=== PATIENT | female | born 2000 | race Caucasian/White ===

== ENCOUNTER 2018-12-12 12:59 | Outpatient (CLI) | payer MEDICAID ==
[2018-12-12 13:16] VITALS: BP 115/74
--- NOTE | 2018-12-12 15:20 | Ultrasound Report ---
ULTRASOUND BIOPHYSICAL PROFILE: History: well being Technique: Transabdominal ultrasound with Doppler interrogation. 2 - breathing movements 2 - movements 2 - posture and tone 2 - Qualitative amniotic fluid volume 8 - TOTAL SCORE OF POSSIBLE 8 Heart Rate (bpm) 134
--- NOTE | 2018-12-12 15:21 | Ultrasound Report ---
ULTRASOUND OB LIMITED History: well being Technique: Transabdominal ultrasound with Doppler interrogation. Gestation: Single Position: Cephalic Amniotic Fluid: Normal K[place] = 15.9 cm Heart Rate: 129 BPM
== END 2018-12-12 15:43 | disposition home or self-care (01) ==
LOC: TRG 12:59
PROVIDERS: ATTEND Obstetrics & Gynecology
DX: O47.1 False labor at or after 37 completed weeks of gestation (principal); Z3A.40 40 weeks gestation of pregnancy
CPT/HCPCS: 59025; 76815; 76819

== ENCOUNTER 2018-12-14 05:06 | Inpatient (IN) | payer MEDICAID ==
[2018-12-14] MEDS ORDERED: AMPICILLIN/NS 2 GM/100 ML 2 GM/100 ML BAG IV ONE (06:00)
[2018-12-14] MEDS ORDERED: LACTATED RINGERS 1,000 ML IV SCH ×2 (06:00→13:00)
[2018-12-14 06:23] LABS: Hematocrit 35.5 % (30.3-42.9); Hemoglobin 11.5 gm/dl (10.1-14.3); Mean Corpuscular HGB Conc 32 % (30-34); Mean Corpuscular Volume 82 fl (79-97); Platelet Count 266 K/mm3 (140-440); Red Blood Count 4.31 M/mm3 (3.65-5.03); Red Cell Distribution Width 13.4 % (13.2-15.2)
[2018-12-14] MEDS: STADOL IV PRN ×2 (07:41→09:48)
[2018-12-14] MEDS ORDERED: AMPICILLIN 1 GM in NACL 0.9% 50 ML IV SCH (10:00)
--- NOTE | 2018-12-14 10:07 | History and Physical Report ---
History of Present Illness Date of examination: 12/14/18 Date of admission: 12/14/18 07:48 Chief complaint: Intense labor pains History of present illness: Early entry to care, course complicated by a UTI, treated with Augmentin, Vitamin D Deficiency, and Anemia. Co-managed with Cardiology due to Shortness of Breath and Palpitations. Past History Past Medical History: no pertinent history Past Surgical History: no surgical history Family/Genetic History: diabetes, heart disease, hypertension, cancer Social history: no significant social history, single - Obstetrical History Expected Date of Delivery: 12/08/18 Actual Gestation: 40 Week(s) 6 Day(s) : 1 Medications and Allergies Allergies Allergy/AdvReac Type Severity Reaction Status Date / Time No Known Allergies Allergy Verified 12/12/18 13:04 Home Medications Medication Instructions Recorded Confirmed Last Taken Type Formula Tablet 1 tab PO DAILY 12/14/18 12/14/18 Unknown History Active Meds: Active Medications Butorphanol Tartrate (Stadol) 2 mg IV Q2H PRN PRN Reason: Labor Pain Last Admin: 12/14/18 09:48 Dose: 2 mg Documented by: Ampicillin Sodium 1 gm/ Sodium (Chloride) 50 mls @ 200 mls/hr IV Q4H MYRNA Lactated Ringer's (Lactated Ringers) 1,000 mls @ 125 mls/hr IV DIRECT MYRNA Last Admin: 12/14/18 06:27 Dose: 125 mls/hr Documented by: Review of Systems All systems: negative - Vital Signs Vital signs: Vital Signs Pulse BP 80 91/54 12/14/18 07:45 12/14/18 07:45 Temp Pulse Resp BP Pulse Ox 83 121/59 12/14/18 09:48 12/14/18 09:48 - Physical Exam Breasts: Positive: normal Cardiovascular: Regular rate Lungs: Positive: Clear to auscultation, Normal air movement Abdomen: Positive: normal appearance, soft, normal bowel sounds Genitourinary (Female): Positive: normal external genitalia, normal perenium Vagina: Positive: normal moisture Uterus: Positive: enlarged Anus/Rectum: Positive: normal perianal skin - Obstetrical FHR: category 1 Uterine Contraction Monitor Mode: External Cervical Dilatation: 8 (Moderate amount of clear fluid upon AROM at 0957) Cervical Effacement Percentage: 90 station: -1 Uterine Contraction Frequency (min): 1-2 Uterine Contraction Pattern: Regular Uterine Contraction Intensity: Moderate Results Result Diagrams: 12/14/18 05:57 Abnormal lab results 12/14/18 Range/Units 05:57 WBC 12.3 H (4.5-11.0) K/mm3 MCH 27 L (28-32) pg All other labs normal. Assessment and Plan A: IUP @ 40 6/7 Weeks Category I Tracing Active Labor GBS Positive P: Admit to L&D per Routine Orders AROM GBS Prophylaxis IV Pain Control
[2018-12-14] MEDS ORDERED: PITOCin/NS 20 UNIT/1000ML DRIP 20,000 MILLIUNITS/1,000 ML BAG IV ONE ×2 (10:53→12:59)
[2018-12-14] MEDS ORDERED: MINERAL OIL ONE ×2 (11:01→11:02)
[2018-12-14] MEDS ORDERED: MINERAL OIL PO ONE (11:06)
[2018-12-14] MEDS ORDERED: XYLOCAINE 2% INFILTRATI ONE ×2 (11:41→12:21)
[2018-12-14] MEDS ORDERED: MINERAL OIL PO PRN (12:21)
[2018-12-14] MEDS ORDERED: BRETHINE IVP PRN (12:21)
[2018-12-14] MEDS ORDERED: BRETHINE SUB-Q PRN (12:21)
[2018-12-14] MEDS ORDERED: TUCKS PAD TP PRN ×2 (12:24→19:01)
[2018-12-14] MEDS ORDERED: BENADRYL PO PRN (12:24)
[2018-12-14] MEDS ORDERED: LANSINOH TP PRN (12:24)
[2018-12-14] MEDS ORDERED: MILK OF MAGNESIA PO PRN (12:24)
[2018-12-14] MEDS ORDERED: NORCO 5/325 PO PRN ×2 (12:24→16:01)
--- NOTE | 2018-12-14 12:31 | Procedure Note ---
OB Delivery Note - Delivery Date of Delivery: 12/14/18 (1137) Surgeon: STEPHY MCMAHAN Estimated blood loss: 300cc - Vaginal Delivery presentation: vertex Delivery position: OA Intrapartum events: none Delivery induction: none Delivery augmentation: rupture of membranes Delivery monitor: external FHT, external uterine Route of delivery: Delivery placenta: spontaneous Delivery cord: 3 umbilical vessels Episiotomy: none Delivery laceration: 1st degree Delivery repair: vicryl Anesthesia: local Delivery comments: of a live 6'6 female infant over 1st bilateral labial lacerations under IV pain control with Apgars of 8 and 9 at 1137 on 12/14/2018. Infant directly to maternal abd/chest, skin to skin contact. Spontaneous delivery of placenta complete and intact with [place] side presenting at 1142. Fundus is firm and midline located 4 below the U. Lochia is scant. Delayed cord clamping and cutting; cord cut by the Father of the Baby. Vaginal/labial lacerations repaired with 2-[address]-1 under local 2% Lidocaine. GBS Prophylaxis x 2. - Infant A at 1 minute: 8 at 5 minutes: 9 Gender: Female (6'6)
[2018-12-14] MEDS ORDERED: SODIUM CHLORIDE FLUSH SYRINGE 10 ML IV NR (13:00)
[2018-12-14] MEDS ORDERED: IBUPROFEN PO SCH (13:00)
[2018-12-14] MEDS: IBUPROFEN PO PRN (17:39)
[2018-12-14] MEDS ORDERED: COLACE PO SCH (22:00)
[2018-12-15] MEDS: IBUPROFEN PO PRN ×3 (00:04→17:00)
[2018-12-15 01:25] LABS: Hematocrit 27.2 % (30.3-42.9)
[2018-12-15] MEDS ORDERED: PRENATAL VITAMIN PO SCH (10:00)
--- NOTE | 2018-12-15 10:24 | Progress Note ---
Assessment and Plan A: PP Day #1 Asymptomatic Anemia P: Follow routine Orders FeSo4 325mg Po BID Depo Provera 150mg IM x 1 dose prior to discharge D/c home in the AM RTO in 6 weeks Subjective - Subjective Date of service: 12/15/18 Interval history: Early entry to care, course complicated by a UTI, treated with Augmentin, Vitamin D Deficiency, and Anemia. Co-managed with Cardiology due to Shortness of Breath and Palpitations. Patient reports: appetite normal, voiding normally, pain well controlled, flatus, ambulating normally [place]: doing well, bottle feeding (and ) Objective - Vital Signs Latest vital signs: Vital Signs Temp Pulse Resp BP BP Pulse Ox 12/15/18 08:57 97.6 F 75 16 99/50 99 12/15/18 01:50 98.2 F 81 16 99/46 12/15/18 00:04 18 12/14/18 21:10 98 F 76 18 115/63 12/14/18 17:00 98.3 F 12/14/18 15:55 98.6 F 80 16 111/66 97 12/14/18 13:53 97.7 F 83 18 112/67 98 12/14/18 13:10 94 H 111/63 12/14/18 12:55 83 107/58 12/14/18 12:40 86 115/62 12/14/18 12:25 93 H 107/55 12/14/18 12:10 101 H 111/58 12/14/18 11:55 103 H 112/59 12/14/18 11:45 111 H 112/61 12/14/18 11:42 112 H 118/69 12/14/18 11:15 105 H 128/70 12/14/18 10:46 110 H 118/63 12/14/18 10:30 98.6 F Intake and Output 12/14/18 12/15/18 12/15/18 22:59 06:59 14:59 Intake Total 480 360 360 Output Total 400 Balance 80 360 360 Intake: Oral 120 Intake, Free Water 360 360 360 Output: Urine 400 Void 400 Other: Total, Intake Amount 120 Total, Output Amount 400 # Voids Void 1 2 1 - Exam Breasts: Present: normal Cardiovascular: Present: Regular rate Lungs: Present: Clear to auscultation, Normal air movement Abdomen: Present: normal appearance, soft, normal bowel sounds Uterus: Present: normal, firm, fundal height below umbilicus Extremities: Present: normal - Labs Labs: Abnormal lab results 12/15/18 Range/Units 00:48 Hgb 9.0 L (10.1-14.3) gm/dl Hct 27.2 L D (30.3-42.9) %
--- NOTE | 2018-12-15 10:25 | Discharge Summary ---
Providers - Providers Date of Admission: 12/14/18 07:48 Date of discharge: 12/16/18 Attending physician: STEFANIE WESLEY MD Primary care physician: STEFANIE WESLEY MD Hospitalization Reason for admission: active labor Delivery: Episiotomy: none Laceration: 1st degree Other procedures: none complications: none Discharge diagnosis: IUP at term delivered [place] baby: female Condition at discharge: Good Disposition: DC-01 TO HOME OR SELFCARE Plan - Provider Discharge Summary Activity: routine, no sex for 6 weeks, no heavy lifting 4 weeks, no strenuous exercise Diet: routine Instructions: routine Additional instructions: [] Smoking cessation referral if applicable(refer to patient education folder for contact #) [] Refer to [facility]'s [facility] Booklet Call your doctor immediately for: * Fever > 100.5 * Heavy vaginal bleeding ( >1 pad per hour) * Severe persistent headache * Shortness of breath * Reddened, hot, painful area to leg or breast * Drainage or odor from incision. * Keep incision clean and dry at all times and follow doctor's instructions regarding bathing/showering - Follow up plan Follow up: STEFANIE WESLEY MD [Primary Care Provider] - 6 Weeks
[2018-12-15] MEDS ORDERED: DEPO-PROVERA (CONTRACEPTION) IM NR (10:30)
[2018-12-15] MEDS: FEOSOL PO SCH ×2 (10:32→21:35)
[2018-12-16] MEDS: IBUPROFEN PO PRN ×2 (00:42→12:17)
[2018-12-16] MEDS ORDERED: DEPO-PROVERA (CONTRACEPTION) IM NR (08:00)
[2018-12-16] MEDS: FEOSOL PO SCH (12:18)
[2018-12-16 12:35] VITALS: BP 118/76
== END 2018-12-16 14:30 | disposition home or self-care (01) | DRG 775 ==
LOC: TRG 05:06 → LD 07:48 → TRG 07:48 → OB 13:39
PROVIDERS: ADMIT Obstetrics & Gynecology; ATTEND Obstetrics & Gynecology
PROC: 10E0XZZ Delivery of Products of Conception, External Approach (ICD-10-PCS; principal; 2018-12-14)
PROC: 0HQ9XZZ Repair Perineum Skin, External Approach (ICD-10-PCS; 2018-12-14)
PROC: 10907ZC Drainage of Amniotic Fluid, Therapeutic from Products of Conception, Via Natural or Artificial Opening (ICD-10-PCS; 2018-12-14)
DX: O99.824 Streptococcus B carrier state complicating childbirth (principal); O99.02 Anemia complicating childbirth; O70.0 First degree perineal laceration during delivery; D64.9 Anemia, unspecified; Z3A.40 40 weeks gestation of pregnancy; Z37.0 Single live birth; Z83.3 Family history of diabetes mellitus; Z82.49 Family history of ischemic heart disease and other diseases of the circulatory system; Z80.9 Family history of malignant neoplasm, unspecified; Z79.899 Other long term (current) drug therapy
CPT/HCPCS: 36415; 59025; 76815; 76819; 85014; 85018; 85027; 86592; 86850; 86900; 86901; G0378; J0290; J0595; J1050; J2590; J7120